=== PATIENT | female | born 1945 | race Caucasian/White ===

== ENCOUNTER → 2016-09-27 | Outpatient (CLI) | payer MEDICARE, OTHER ==
--- NOTE | 2016-10-02 14:45 | RADIOLOGY REPORT PS360 ---
DIG MAMM-SCREEN [place] W/CAD CAD Screening COMPARISON: Digital mammograms 08/26/2015 and right mammogram 01/14/2015 and bilateral digital mammograms 06/24/2014 INDICATION: There is no personal or family history of breast cancer TECHNIQUE: Standard CC and MLO images were obtained. R2 CAD reviewed. FINDINGS: Prominent diffuse heterogenic fibroglandular densities are seen throughout both breasts somewhat lessening the sensitivity of mammography. There are scattered benign-appearing calcification in each breast. There are 2 mole markers right breast and a single mole marker left breast. There is no suspicious lesion and no suspicious microcalcifications. IMPRESSION: Moderate diffuse heterogenic density with no suspicious lesion seen recommend yearly follow-up BI-RADS CATEGORY: 2_Benign RECOMMENDED FOLLOWUP: 12M 12 MONTH FOLLOW-UP (A letter has been sent to the patient regarding results of the study.)
== END ==
LOC: RAD 10:21
DX: Z12.31 Encounter for screening mammogram for malignant neoplasm of breast (principal)
CPT/HCPCS: G0202

== ENCOUNTER 2016-12-04 19:43 | Emergency (ER) | payer MEDICARE, OTHER ==
[~2016-12-04] VITALS: Ht 165.1 cm; Wt 87.1 kg
[2016-12-04] MEDS ORDERED: ACTOPLUS MET 501 TAB PO (19:56)
--- NOTE | 2016-12-04 19:56 | Urgent Treatment Center Report ---
History of Present Issue Date/Time Seen by Provider 12/04/161954 Visit Reason Pt arrived: Presenting Problem: Location if Accident: Onset of symptoms date/time:/ or onset unknown for: Have you (or family members/close friends) recently traveled outside the [place]? If Yes, where/when: Have you had exposure to infectious disease within the past month? TB? Other? Specify: Source patient, RN notes reviewed Exam Limitations no limitations Comment Patient presents with dysuria, frequency since this am. No fever. No nausea or vomiting. Leaving tomorrow for [place]. Allergic to Sulfa and Cipro caused joint pain. ALLERGIES Coded Allergies: sulfamethoxazole (From BACTRIM) (12/04/16) trimethoprim (From BACTRIM) (12/04/16) Home Medications Reported Medications PIOGLITAZONE HCL/METFORMIN HCL (Actoplus Met 15 MG-500 MG Tab) 1 TAB PO DAILY LISINOPRIL (Lisinopril) 10 MG PO DAILY Loratadine (Claritin 10MG) 10 MG PO DAILY Atorvastatin Calcium (Lipitor 10MG) 10 MG PO QHS ASPIRIN (Aspirin) 81 MG PO DAILY History Medical History Surgical Hx Previous Surgery?Y HYSTERECTOMY OOPHORECTOMY Review of Systems All Other Systems Reviewed and Negative Genitourinary dysuria, frequency. Physical Exam Vital Signs Vital Signs Date Time Temp Pulse Resp B/P Pulse O2 O2 Flow FiO2 Ox Delivery Rate 12/04 1954 98.5 93 20 172/61 100 General Appearance normal appearance, no apparent distress Respiratory Status No: respiratory distress, trachea midline, chest symmetrical. Lung Sounds bilateral: normal breath sounds, lungs clear. Cardiovascular normal exam, regular rate/rhythm, no peripheral edema, no gallop, no JVD, no murmur, no rub Extremities non-tender, normal range of motion, normal inspection, normal capillary refill Neurologic alert, normal exam, oriented x 3 Mental status normal mood/affect Medical Decision Making LABS/Meds/Orders Pt receiving controlled substance in ED? No Results/Orders Laboratory Tests 12/04/16 2004: Urine Color DAXA, Urine Appearance TURBID, Urine pH 5.5, Ur Specific [place] >= 1.030, Urine Protein 2+ H, Urine Ketones TRACE H, Urine Blood 3+ H, Urine Nitrate NEGATIVE, Urine Bilirubin NEGATIVE, Urine Urobilinogen 0.2, Ur Leukocyte Esterase NEGATIVE, Urine RBC TNTC, Urine WBC OCC, Urine Glucose NEGATIVE 12/04/161952: Urine Color Cancelled, Urine Appearance Cancelled, Urine pH Cancelled, Ur Specific [place] Cancelled Current Medication Orders Sig/Jasiel Start time Last Medication Dose Route Stop Time Status Admin Cephalexin 500 MG ONCE ONE 12/04 2014 DC 12/04 Monohydrate PO 12/04 Cephalexin 0 .STK-MED ONE 12/04 2013 DC Monohydrate PO Orders Procedure Date/time Status CULTURE, URINE 12/04 2017 Active URINALYSIS/COMPLETE 12/05 2003 Complete Departure Departure Time of Disposition 2019 Disposition DC Home or Self Care(routine) Clinical Impression Primary Impression: UTI (urinary tract infection) Qualifiers: Urinary tract infection type: acute cystitis Hematuria presence: with hematuria Qualified Code: N30.01 - Acute cystitis with hematuria Condition STABLE Referrals Lloyd SEPULVEDA,Tyler Patient Instructions DI for Urinary Tract Infection (UTI) Additional Instructions Increase fluids. Discharge Counseling Counseled pt/family regarding diagnosis, test results, medications/RX, home care, follow up needs Prescriptions Current Visit Scripts CEPHALEXIN (Keflex 500MG Capsule) 500 MG PO Q8H #30 CAP at 2019
[2016-12-04] MEDS ORDERED: ASPIRIN 81MG TA81 MG PO (19:57)
[2016-12-04] MEDS ORDERED: LISINOPRIL 10MG10 MG PO (19:57)
[2016-12-04] MEDS ORDERED: LIPITOR10 MG PO (19:57)
[2016-12-04] MEDS ORDERED: CLARITIN 10MG T10 MG PO (19:57)
[2016-12-04 20:14] LABS: URINE BLOOD 3+ (NEG)
[2016-12-04 20:17] LABS: URINE BILIRUBIN - DIPSTICK NEGATIVE (NEG)
[2016-12-04] MEDS ORDERED: KEFLEX 500MG.500 MG PO (20:19)
[2016-12-04 20:33] VITALS: BP 172/61
== END 2016-12-04 20:34 | disposition home or self-care (01) ==
LOC: UTC 19:43
PROVIDERS: Emergency Medicine
DX: N30.01 Acute cystitis with hematuria (principal); Z79.84 Long term (current) use of oral hypoglycemic drugs; Z79.82 Long term (current) use of aspirin; Z79.899 Other long term (current) drug therapy

== ENCOUNTER 2017-02-08 10:38 | Emergency (ER) | payer MEDICARE, OTHER ==
[~2017-02-08] VITALS: Ht 165.1 cm; Wt 85.7 kg
[~2017-02-08 10:38] MED LIST: ACTOPLUS MET 501 TAB PO; ASPIRIN 81MG TA81 MG PO; CLARITIN 10MG T10 MG PO; KEFLEX 500MG.500 MG PO; LIPITOR10 MG PO; LISINOPRIL 10MG10 MG PO
--- OUTSIDE RECORDS SUMMARY | 2017-02-08 10:43 | External Medical Summary Rpt | CCD ---
Author Author SIMONA Address Unknown Phone [email or web address] Purpose Continuity of Care Document - through 2016
--- OUTSIDE RECORDS SUMMARY | 2017-02-08 10:43 | External Medical Summary Rpt | CCD ---
Author Author SIMONA Address Unknown Phone Purpose Continuity of Care Document - through 2016
--- OUTSIDE RECORDS SUMMARY | 2017-02-08 10:44 | External Medical Summary Rpt ---
Author Author SIMONA Del Valle, [employer] Address Unknown Phone Unavailable
--- OUTSIDE RECORDS SUMMARY | 2017-02-08 10:44 | External Medical Summary Rpt | CCD ---
Author Author , SIMONA JARVIS Address Unknown Phone [email or web address] Immunization Name Date Rout CVX Reac Dose Comm Prov Is Faci e tion ent ider Refu lity Give sed n Infl 11-19 135 999 Hist D203 No D203 uenz 9 oric 45 45 a, 16 al High Info rmat Dose ion - Sour ce Unsp ecif ied Td 11-19 9 999 Hist H191 No H191 (frances 11-05 oric lt), 98 al Info adso rmat rbed ion - Sour ce Unsp ecif ied
--- OUTSIDE RECORDS SUMMARY | 2017-02-08 10:44 | External Medical Summary Rpt | CCD ---
Author Author , SIMONA JARVIS Address Unknown Phone [email or web address] Immunization Name Date Rout CVX Reac Dose [...]
[2017-02-08] MEDS ORDERED: AUGMENTIN 875-1 EACH PO (10:59)
[2017-02-08] MEDS ORDERED: TESSALON PERLE100 M1 PO (10:59)
[2017-02-08] MEDS ORDERED: FLONASE 50 MCG16 GM (10:59)
--- NOTE | 2017-02-08 11:03 | Urgent Treatment Center Report ---
History of Present Issue Date/Time Seen by Provider 02/08/17 1052 Visit Reason Pt arrived:Walked Presenting Problem:PT IS C/O SINUS CINGESTION X2 WEEKS Location if Accident: Onset of symptoms date/time:/ or onset unknown for:MEDICAL HX UNKNOWN Have you (or family members/close friends) recently traveled outside the [place]? N If Yes, where/when: Have you had exposure to infectious disease within the past month? TB? Other? Specify: Patient state that she has been having sinus pain and pressure now for over 2 weeks State that it started a couple weeks ago then she thought it got better than it returned and now it seems worse than what it was before. States that she is having pressure under her eyes, states that she has thick mucous coming from her nose State that she has taken several over the counter medication but nothing has helped ALLERGIES Coded Allergies: sulfamethoxazole (From BACTRIM) (12/04/16) trimethoprim (From BACTRIM) (12/04/16) Home Medications Reported Medications PIOGLITAZONE HCL/METFORMIN HCL (Actoplus Met 15 MG-500 MG Tab) 1 TAB PO DAILY LISINOPRIL (Lisinopril) 10 MG PO DAILY Loratadine (Claritin 10MG) 10 MG PO DAILY Atorvastatin Calcium (Lipitor 10MG) 10 MG PO QHS ASPIRIN (Aspirin) 81 MG PO DAILY History Medical History General CAD? No Angina: No HI: No Hypertension? Yes Hyperlipidemia? Yes CHF? No DVT? No PE? No COPD? No Asthma? No Anemia? No GERD? No Gastric ulcers? No GI Bleed? No Hernia? No Thyroid Problems? No Hypothyroidism? No CVA? No Seizures? No Diabetes? Yes Insulin Dependent: No Insulin Pump: No Home FSBS? No Renal Insuffiency? No UTI? No Stones? No BPH? No GB Disease: No Nephritic Syndrome? No Asplenia? No Hepatitis? No Sickle Cell Disease? No Arthritis? No Migraines? No Cataracts? No Glaucoma? No MRSA? No HIV? No TB? No Anxiety? No Depression? No Cancer? No More? No Immunization HX DT/Tetanus Unknown Surgical Hx Previous Surgery?Y HYSTERECTOMY OOPHORECTOMY Social History Smoking Hx Smoker: Never Smoker Tobacco: No Alcohol Alcohol: No Review of Systems All Other Systems Reviewed and Negative ENT nose congestion. Respiratory cough Physical Exam Vital Signs Vital Signs Date Time Temp Pulse Resp B/P Pulse O2 O2 Flow FiO2 Ox Delivery Rate 02/08 1048 98.4 87 20 147/60 100 General Appearance normal appearance, WD/WN, no apparent distress Ear, Nose, Throat sinus pain/drainage, nasal congestion, Reports dark yellow drainage from nose, tenderness maxillary sinuses Respiratory Status Yes: trachea midline, chest symmetrical, non tender chest. No: respiratory distress. Lung Sounds bilateral: normal breath sounds, lungs clear. Cardiovascular normal exam, regular rate/rhythm, no peripheral edema Neurologic alert, normal exam, oriented x 3 Medical Decision Making LABS/Meds/Orders Pt receiving controlled substance in ED? No Departure Departure Time of Disposition 1052 Disposition DC Home or Self Care(routine) Clinical Impression Primary Impression: Sinusitis Qualifiers: Sinusitis location: maxillary Chronicity: unspecified Qualified Code: J32.0 - Chronic maxillary sinusitis Condition STABLE Referrals Lloyd SEPULVEDA,Tyler (Family): 3 Days-Call Office If no improvement or worsening of symtoms Patient Instructions DI for Nasal Congestion, DI for Sinusitis, Sinus Headache, Sinusitis Additional Instructions Start antibiotic. Sinus infections may take 2-3 days to notice much improvement so be sure to use conservative measures as discussed for symptoms Flonase 2 spray in each nostril daily to help with nasal congestion, sinus an ear pressure/inflammation Lots of Fluids Sleep elevated Humidifer/vaporizer Discharge Counseling Counseled pt/family regarding diagnosis, medications/RX, home care, follow up needs Prescriptions Current Visit Scripts Amoxicillin/Potassium Clav (Augmentin 875-125 Tablet) 1 EACH PO BID #14 TAB Fluticasone Propionate (Flonase 50 Mcg Nasal [place]) 2 SPRAY NA DAILY #1 BOT Benzonatate (Tessalon Perle) 100 MG PO TID #15 SGL at 1103
[2017-02-08 11:13] VITALS: BP 147/60
== END 2017-02-08 11:14 | disposition home or self-care (01) ==
LOC: UTC 10:38
DX: J32.0 Chronic maxillary sinusitis (principal); E11.9 Type 2 diabetes mellitus without complications; I10 Essential (primary) hypertension; E78.5 Hyperlipidemia, unspecified; Z88.2 Allergy status to sulfonamides